=== PATIENT | male | born 1985 | race Caucasian/White ===

== ENCOUNTER 2021-03-23 13:05 | Emergency (ER) | payer OTHER ==
[2021-03-23] MEDS ORDERED: BACTRIM DS TAB1 EACH PO (16:18)
[2021-03-23] MEDS ORDERED: CEPHALEXIN500 MG PO (16:18)
== END 2021-03-23 17:10 | disposition home or self-care (01) ==
LOC: FER 13:05
DX: N49.2 Inflammatory disorders of scrotum (principal); Z23 Encounter for immunization; F17.210 Nicotine dependence, cigarettes, uncomplicated
CPT/HCPCS: 87070; 87077; 87205; 90471; 90715